=== PATIENT | male | born 1960 | race Caucasian/White ===

== ENCOUNTER 2017-07-01 09:17 | Outpatient (CLI) | payer BC ==
[2017-07-01 10:35] LABS: #Eosinphils 0.1 thou/uL (0.0-0.7); #Lymphocytes 1.7 thou/uL (1.20-3.40); #Monocytes 0.7 thou/uL (0.11-0.59); %Basophils 0.4 % (0.0-1.0); %Eosinophils 1.2 % (0.0-10.0); %Monocytes 9.9 % (0.0-10.0); %Neutrophils 66.5 % (42.0-75.0); Hemoglobin 12.3 g/dL (14.0-18.0); Mean Corpuscular HGB CONC 32.3 g/dL (32.0-36.0); Mean Corpuscular Hemoglobin 32.9 pg (27.0-31.0); Mean Platelet Volume 7.5 fL (7.4-10.4); Platelet Count 219 thou/uL (130-400); RBC Distribution Width 11.7 % (11.5-14.5); Red Blood Cell (RBC) Count 3.74 mill/uL (4.70-6.10); White Blood Cell (WBC) Count 7.5 thou/uL (4.8-10.8)
[2017-07-01 10:56] LABS: Anion Gap 12 mmol/L (10-20); BUN (Urea Nitrogen) 10 mg/dL (8.4-25.7); Calc. Creatinine Clearance 0 mL/min (70-130); Calcium 8.9 mg/dL (7.8-10.44); Carbon Dioxide 28 mmol/L (22-29); Chloride 103 mmol/L (98-107); Estimated GFR-MDRD Greater than 90; Glucose 102 mg/dL (70-105); Potassium 4.2 mmol/L (3.5-5.1); Sodium 139 mmol/L (136-145)
== END 2017-07-01 09:18 | disposition home or self-care (01) ==
LOC: LABBT 09:17
PROVIDERS: ATTEND Surgery
DX: Z01.812 Encounter for preprocedural laboratory examination (principal); N60.01 Solitary cyst of right breast
CPT/HCPCS: 80048; 85025

== ENCOUNTER 2017-07-08 07:22 | Day surgery (SDC) | payer BC ==
[2017-07-01 09:43] VITALS: BMI 23.1
[2017-07-08] MEDS ORDERED: CEFAZOLIN/Water 2 GM/20 ML SYRINGE ONE (08:05)
[2017-07-08] MEDS ORDERED: Midazolam HCl 2 mg/2 ml Vial ONE ×2 (08:23→09:18)
[2017-07-08] MEDS ORDERED: Fentanyl 100 MCG/2 ML VIAL ONE (09:18)
[2017-07-08] MEDS ORDERED: Bupivacaine/Epinephrine 0.25% 30 ML VIAL ONE (09:20)
[2017-07-08] MEDS ORDERED: Lidocaine 2% PF 5 ML VIAL ONE (09:20)
[2017-07-08] MEDS ORDERED: Lidocaine 1% PF 5 ML VIAL ONE (14:38)
[2017-07-08] MEDS ORDERED: Ondansetron HCl/PF 4 MG/2 ML Vial ONE (14:38)
--- NOTE | 2017-07-09 15:06 | OP ---
DATE OF PROCEDURE: 07/08/2017 PREOPERATIVE DIAGNOSIS: Right breast mass, right arm mass. POSTOPERATIVE DIAGNOSIS: Right breast mass, right arm mass. PROCEDURES: 1. Excision of right breast mass, subareolar 2. Excision right arm mass, laterally. SURGEON: Kunal Daily M.D. ANESTHESIA: General. ESTIMATED BLOOD LOSS: Minimal. COMPLICATIONS: None. SPECIMEN: Right breast mass, right arm mass. TECHNIQUE: The patient was taken to the operating room and placed supine on the table. After genera l anesthetic was obtained, the right chest and arm were all prepped and draped in a sterile fashion. Incision was made on the inferior areolar line. The subareolar tissues were all removed including t he palpable abnormality, sent to pathology for final diagnosis. The wound was irrigated and closed u sing 3-0 Vicryl, 4-0 Monocryl, and Dermabond. Next, a longitudinal incision was made over the palpab le abnormality in the right lateral arm. The soft tissue masses removed. The wound was closed using 4-0 Monocryl and Dermabond as well. The patient was en route to recovery in stable condition. All instrument counts, needle counts, and lap counts were correct.
== END 2017-07-08 11:45 | disposition home or self-care (01) ==
LOC: SDC 07:22
PROVIDERS: ATTEND Surgery
PROC: 0HBDXZZ Excision of Right Lower Arm Skin, External Approach (ICD-10-PCS; principal; 2017-07-08)
PROC: 0HBT0ZX Excision of Right Breast, Open Approach, Diagnostic (ICD-10-PCS; principal; 2017-07-08)
DX: N60.91 Unspecified benign mammary dysplasia of right breast (principal); K21.9 Gastro-esophageal reflux disease without esophagitis; M19.90 Unspecified osteoarthritis, unspecified site; F41.9 Anxiety disorder, unspecified; K22.70 Barrett's esophagus without dysplasia; F42.9 Obsessive-compulsive disorder, unspecified; M54.9 Dorsalgia, unspecified; G89.29 Other chronic pain; J43.9 Emphysema, unspecified; Z79.891 Long term (current) use of opiate analgesic; Z79.899 Other long term (current) drug therapy; Z98.1 Arthrodesis status; Z98.890 Other specified postprocedural states; Z87.891 Personal history of nicotine dependence; Z87.81 Personal history of (healed) traumatic fracture
CPT/HCPCS: 88304; 88305; J2001; J2250; J2405; J3010